=== PATIENT | male | born 1955 | race Caucasian/White ===

== ENCOUNTER → 2018-10-05 11:28 | Outpatient (CLI) | payer MEDICARE, BC, SELFPAY ==
--- NOTE | 2018-10-05 11:35 | XR_ITS ---
XR foot wt bearing LT 3V HISTORY: Foot pain ITS.REASON: pain ORDERING PHYSICIAN: Frannie Ying DPM PATIENT AGE: 63 years COMPARISON: None FINDINGS: No fracture or dislocation. No lytic or blastic change. There is normal mineralization.. The joint spaces are well-preserved. No significant degenerative/arthritic changes. No erosive changes evident. There is a small calcaneal spur at 9 mm. Mild hypertrophic changes are present dorsally at the tarsometatarsal junction. A small cortical cystic areas present within the distal articulating surface of the proximal phalanx of the second toe IMPRESSION: Mild degenerative changes, no acute finding
--- NOTE | 2018-10-05 11:35 | XR_ITS ---
XR foot wt bearing RT 3V HISTORY: ITS.REASON: pain ORDERING PHYSICIAN: Frannie Ying DPM PATIENT AGE: 63 years COMPARISON: None FINDINGS: No fracture or dislocation. No lytic or blastic change. There is normal mineralization.. The joint spaces are well-preserved. No significant degenerative/arthritic changes. No erosive changes evident. IMPRESSION: Negative, no acute finding
== END ==
PROVIDERS: PCP Nurse Practitioner Family; Visit Provider Podiatrist
DX: M77.41 Metatarsalgia, right foot (principal); M77.42 Metatarsalgia, left foot
CPT/HCPCS: 73630

== ENCOUNTER → 2018-11-27 11:42 | Outpatient (CLI) | payer MEDICARE, BC, SELFPAY ==
--- NOTE | 2018-11-27 11:47 | XR_ITS ---
XR chest 2V HISTORY: ITS.REASON: SHORTNESS OF BREATH ORDERING PHYSICIAN: Reina Edwards PATIENT AGE: 63 years COMPARISON: None FINDINGS: The cardiomediastinal silhouette and pulmonary vascularity are within normal limits. The lungs are clear without infiltrates, suspicious nodules, or pleural effusions. No acute bony abnormalities. IMPRESSION: Negative chest, no acute finding
== END ==
PROVIDERS: PCP Nurse Practitioner Family; Visit Provider Nurse Practitioner Family
DX: R06.02 Shortness of breath (principal)
CPT/HCPCS: 71046

== ENCOUNTER → 2018-11-30 09:59 | Outpatient (POV) | payer MEDICARE, BC, SELFPAY | PROVIDERS: Visit Provider Specialist | DX: R20.2 Paresthesia of skin (principal); M79.672 Pain in left foot; M79.671 Pain in right foot | CPT/HCPCS: 95886; 95909 ==

== ENCOUNTER → 2018-12-09 09:42 | Outpatient (CLI) | payer MEDICARE, BC, SELFPAY ==
[2018-12-09 16:25] VITALS: PULSE 78; PULSE 80
== END ==
PROVIDERS: PCP Nurse Practitioner Family; Visit Provider Nurse Practitioner Family
DX: R06.02 Shortness of breath (principal)
CPT/HCPCS: 94060; 94640

== ENCOUNTER → 2018-12-29 14:58 | Outpatient (CLI) | payer MEDICARE, BC, SELFPAY ==
--- NOTE | 2018-12-29 15:01 | CT_ITS ---
CT chest wo con HISTORY: Shortness of air ITS.REASON: SOB ORDERING PHYSICIAN: Reina Edwards APRN PATIENT AGE: 63 years COMPARISON: None Technique: Axial images obtained. Sagittal, and coronal reformatted images are also generated and reviewed. All CT scans at the facility use one or more dose reduction, viz: automated exposure control, ma/kV adjustment per patient size (including targeted exams where dose is matched to indication, i.e. head), or iterative reconstruction technique. FINDINGS: Coronary artery stent is present. Normal heart size record artery calcifications are also noted. There are scattered small pulmonary nodules 3 mm or less. A 4 mm noncalcified nodule is present along the left major fissure. No lobar consolidation or collapse. There is a 4 mm nodule in the left lower lobe in subpleural region which is calcified. No effusions or infiltrates. No acute bony findings. Upper abdominal images show no acute finding. There is some gas in the distal esophagus which could be related to reflux. IMPRESSION: 1. No acute finding. 2. Scattered noncalcified small pulmonary nodules 3 mm or less. Suggest 1 year follow-up.
== END ==
PROVIDERS: PCP Nurse Practitioner Family; Visit Provider Nurse Practitioner Family
DX: R06.02 Shortness of breath (principal)
CPT/HCPCS: 71250

== ENCOUNTER → 2019-06-03 13:47 | Outpatient (CLI) | payer MEDICARE, BC, SELFPAY ==
[2019-06-03 15:09] LABS: Anion Gap 13.3 mEq/L (5-15); Blood Urea Nitrogen 18 mg/dL (7-18); Calcium 9.1 mg/dL (8.5-10.1); Carbon Dioxide 28 mmol/L (21.0-32.0); Chloride 104 mmol/L (98-107); Creatinine,Serum 1.06 mg/dL (0.70-1.30); Estimated Glomerular Filt Rate 70 ml/min (>60); GFR (African American) 85 ML/MIN (>60); Glucose 88 mg/dL (74-106); Potassium 4.3 mmoL/L (3.5-5.1); Sodium 141 mmol/L (136-145)
== END ==
PROVIDERS: Visit Provider Clinical Nurse Specialist Adult Health
DX: R06.09 Other forms of dyspnea (principal)
CPT/HCPCS: 36415; 80048

== ENCOUNTER → 2019-12-07 09:25 | Outpatient (CLI) | payer MEDICARE, BC, SELFPAY ==
[2019-12-07 11:19] LABS: Chloride 105 mmol/L (98-107); Potassium 4.2 mmoL/L (3.5-5.1); Sodium 139 mmol/L (136-145)
[2019-12-07 11:22] LABS: Anion Gap 11.2 mEq/L (5-15); Blood Urea Nitrogen 12 mg/dl (9-20); Calcium 8.9 mg/dl (8.4-10.2); Carbon Dioxide 27 mmol/L (22.0-30.0); Estimated Glomerular Filt Rate 75 ml/min (>60); GFR (African American) 90 ML/MIN (>60); Glucose 103 mg/dl (74-100)
== END ==
PROVIDERS: Visit Provider Clinical Nurse Specialist Adult Health
DX: R06.09 Other forms of dyspnea (principal); Z51.81 Encounter for therapeutic drug level monitoring; Z79.899 Other long term (current) drug therapy
CPT/HCPCS: 36415; 80048

== ENCOUNTER → 2019-12-28 09:08 | Outpatient (CLI) | payer MEDICARE, BC, SELFPAY ==
[2019-12-28 10:10] LABS: Chol/HDL Ratio 2.9 (1-3.5); Cholesterol 144 mg/dl (140-200); HDL Cholesterol 50 mg/dl (40-60); Triglycerides 138 mg/dl (30-150); VLDL Cholesterol 28 mg/dL (0-40)
[2019-12-28 10:21] LABS: Direct LDL Cholesterol 85.29 mg/dL (100-129)
== END ==
PROVIDERS: Visit Provider Clinical Nurse Specialist Adult Health
DX: E78.00 Pure hypercholesterolemia, unspecified (principal)
CPT/HCPCS: 36415; 80061

== ENCOUNTER 2020-02-06 11:32 | Emergency (ER) | payer MEDICARE, BC, SELFPAY ==
[2020-02-06 11:34] VITALS: BP 127/70; PULSE 65; RESP 18; TEMP 36.9; O2SAT 100; BMI 30.3
--- NOTE | 2020-02-06 12:15 | HMH.EDSKAF ---
ED Disposition Clinical Impression: Cellulitis Qualifiers: Site of cellulitis: trunk Site of cellulitis of trunk: chest wall Qualified Code(s): L03.313 - Cellulitis of chest wall Disposition: Home, Self-Care Condition on Discharge: Good Instructions: DI for Skin Abscess Additional Instructions: use meds and see pcp for follow up Prescriptions: cephALEXin [Keflex 500mg Cap] 500 mg PO TID #30 cap Transmission Status: Pending to Clinic Pharmacy [facility] Minocycline HCl [Minocycline HCl 100mg Tab*] 100 mg PO BID #20 tab Transmission Status: Pending to Clinic Pharmacy [facility] Referrals: Provider,Referral, [Primary Care Provider] - - Critical Care Critical Care Time: No Attestation: On 02/06/20, the high probability of a clinically significant, sudden or life threatening deterioration of the following system(s) required my full and direct attention, intervention and personal management. The time I documented below is in addition to time spent performing reported procedures but includes the following listed in this critical care notation. Medical Decision Making - Medical Records Medical records reviewed: Yes: I reviewed the patient's medical records. - Arash Inquiry Pt receiving controlled substance: No Vital Signs: 02/06/20 11:34 Temperature 98.5 F Temperature Source Oral Pulse Rate [Right] 65 Respiratory Rate 18 Blood Pressure [Right Arm] 127/70 Blood Pressure Mean [Right Arm] 89 02 Sat by Pulse Oximetry 100 - Lab Data Lab results reviewed: Yes: I reviewed the patient's lab results. Lab Results 02/06/20 12:17: WBC 8.0, RBC 4.52 L, Hgb 14.6, Hct 40.0 L, MCV 88.6, MCH 32.3 H, MCHC 36.4 H, RDW 13.3, Plt Count 177, MPV 9.0, Neut % (Auto) 71.3, Lymph % (Auto) 17.5, [place] % (Auto) 7.6, Eos % (Auto) 1.5, Baso % (Auto) 2.2 H, Neut # (Auto) 5.7, Lymph # (Auto) 1.4, [place] # (Auto) 0.6, Eos # (Auto) 0.1, Baso # (Auto) 0.2 02/06/20 12:17: Sodium 135 L, Potassium 3.7, Chloride 103, Carbon Dioxide 24, Anion Gap 11.7, BUN 17, Creatinine 1.00, Estimated Creat Clear 107, Estimated GFR 75, Est GFR ( Amer) 90, Glucose 111 H, Calcium 9.3, Total Bilirubin 1.2, AST 30, ALT 21, Alkaline Phosphatase 88, C-Reactive Protein 23.8 H, Total Protein 7.8, Albumin 4.7, Globulin 3.1, Albumin/Globulin Ratio 1.5 02/06/20 12:17: Lactate 0.7 Result diagrams: 02/06/20 12:17 02/06/20 12:17 Orders (Tests/Meds): ED MEDICATIONS Generic Name Dose Route Start Last Admin Trade Name Freq PRN Reason Stop Dose Admin Vancomycin HCl 2,000 mg/ 250 mls @ 125 mls/hr 02/06/20 12:30 02/06/20 12:37 Sodium Chloride IV 02/06/20 14:29 125 mls/hr ONCE ONE Administration ORDERS Category Date Time Status Blood Culture Stat Micro 02/06/20 12:17 Received Skin/Abscess/FB HPI - General Chief complaint: Skin/Abscess/Foreign Body Stated complaint: possible bug bite on rib cage Time Seen by Provider: 02/06/20 12:00 Mode of Arrival: Ambulatory Source of Information: Patient, Spouse, Medical Record Limitations: No Limitations Description of Symptoms (Recalled from ER Triage Doc. by RN): Large area noted to left sided rib cage that is a possible bite of some sort. Denies fever, body aches or chills. - History of Present Illness HPI narrative: pt with raised red area on lt lat chest over the last 2 days - no blisters complaint: rash Onset (ago): day(s) Tetanus up to date: unsure Location: chest Severity: moderate Associated symptoms: denies other symptoms Treatments prior to arrival: none - Related Data Home Medications Medication Instructions Recorded Confirmed amlodipine 10 mg tablet PO 90 Days #90 tab 10/05/18 11/10/18 aspirin 81 mg chewable tablet PO 30 Days #30 tab 10/05/18 11/10/18 atorvastatin 80 mg tablet PO 90 Days #90 tab 10/05/18 11/10/18 carvedilol 6.25 mg tablet PO TID 30 Days #90 tab 10/05/18 11/10/18 clopidogrel 75 mg tablet PO 90 Days #90 tab 10/05/18 11/10/18 hydrochlorothiazide 12.5 mg capsule
[2020-02-06 12:32] LABS: Basophils # 0.2 K/mm3 (0-0.2); Basophils % 2.2 % (0.1-2.0); Eosinophils # 0.1 K/mm3 (0.0-0.4); Eosinophils % 1.5 % (0.1-12.0); Hemoglobin 14.6 g/dL (14.1-18.0); Lymphocytes # 1.4 K/mm3 (0.7-4.5); Lymphocytes % 17.5 % (10-50); Mean Corpuscular HGB Conc 36.4 g/dL (31.8-35.4); Mean Corpuscular Hemoglobin 32.3 pg (27.0-31.2); Mean Corpuscular Volume 88.6 fl (80-94); Monocytes # 0.6 K/mm3 (0.1-1.0); Monocytes % 7.6 % (1.7-9.3); Neutrophils # 5.7 K/mm3 (1.8-7.8); Neutrophils % 71.3 % (37.0-80.0); Platelet Count 177 K/mm3 (142-424); Red Blood Count 4.52 M/mm3 (4.60-6.20); Red Cell Distribution Width 13.3 % (11.5-17.5)
[2020-02-06 12:36] LABS: Alanine Aminotransferase 21 U/L (12-78); Albumin Level 4.7 g/dl (3.5-5.0); Albumin/Globulin Ratio 1.5 (1.1-1.8); Alkaline Phosphatase 88 U/L (38-126); Anion Gap 11.7 mEq/L (5-15); Aspartate Amino Transferase 30 U/L (17-59); Bilirubin,Total 1.2 mg/dl (0.2-1.3); Blood Urea Nitrogen 17 mg/dl (9-20); Calcium 9.3 mg/dl (8.4-10.2); Carbon Dioxide 24 mmol/L (22.0-30.0); Chloride 103 mmol/L (98-107); Creatinine Clearance Estimated 107 mL/min (50-200); Estimated Glomerular Filt Rate 75 ml/min (>60); GFR (African American) 90 ML/MIN (>60); Globulin 3.1 g/dL (1.3-3.2); Glucose 111 mg/dl (74-100); Lactic Acid 0.7 mmol/L (0.7-2.1); Potassium 3.7 mmoL/L (3.5-5.1); Sodium 135 mmol/L (136-145); Total Protein,Serum 7.8 g/dl (6.3-8.2)
[2020-02-06 12:42] LABS: C-Reactive Protein 23.8 mg/L (0-4)
[2020-02-06 14:42] VITALS: BP 123/87; PULSE 85; RESP 20; TEMP 36.8; O2SAT 98
== END 2020-02-06 14:44 | disposition home or self-care (01) ==
PROVIDERS: Emergency Provider Emergency Medicine
DX: L03.313 Cellulitis of chest wall (principal); I10 Essential (primary) hypertension; E78.5 Hyperlipidemia, unspecified; I25.2 Old myocardial infarction; Z79.899 Other long term (current) drug therapy
CPT/HCPCS: 80053; 83605; 85025; 86140; 87040; 96365; 99283; J3370

== ENCOUNTER → 2020-06-23 11:13 | Outpatient (CLI) | payer MEDICARE, BC, SELFPAY ==
[2020-06-24 09:01] LABS: Covid-19 Nasal PCR Sendout UK NOT DETECTED
== END ==
PROVIDERS: PCP Nurse Practitioner Family; Visit Provider Family Medicine
DX: Z03.818 Encounter for observation for suspected exposure to other biological agents ruled out (principal)
CPT/HCPCS: U0003

== ENCOUNTER → 2020-07-04 09:41 | Outpatient (CLI) | payer MEDICARE, BC, SELFPAY ==
[2020-07-04 11:06] LABS: Chloride 103 mmol/L (98-107); Potassium 3.9 mmoL/L (3.5-5.1); Sodium 140 mmol/L (136-145)
[2020-07-04 11:09] LABS: Alanine Aminotransferase 20 U/L (12-78); Albumin Level 4.5 g/dl (3.5-5.0); Albumin/Globulin Ratio 1.8 (1.1-1.8); Alkaline Phosphatase 66 U/L (38-126); Anion Gap 13.9 mEq/L (5-15); Aspartate Amino Transferase 27 U/L (17-59); Bilirubin,Total 0.8 mg/dl (0.2-1.3); Blood Urea Nitrogen 15 mg/dl (9-20); Calcium 9.3 mg/dl (8.4-10.2); Carbon Dioxide 27 mmol/L (22.0-30.0); Chol/HDL Ratio 3.7 (1-3.5); Cholesterol 172 mg/dl (140-200); Estimated Glomerular Filt Rate 75 ml/min (>60); GFR (African American) 90 ML/MIN (>60); Globulin 2.5 g/dL (1.3-3.2); Glucose 105 mg/dl (74-100); HDL Cholesterol 46 mg/dl (40-60); Triglycerides 184 mg/dl (30-150); VLDL Cholesterol 37 mg/dL (0-40)
[2020-07-04 11:21] LABS: Direct LDL Cholesterol 95.49 mg/dL (100-129)
[2020-07-04 11:24] LABS: Triiodothryronine (T3) Uptake 36 % (23.5-40.5)
[2020-07-04 11:25] LABS: Free Thyroxine Index 2.4 ug/dL (5.93-13.13); T4 (Thyroxine) 6.7 ug/dl (5.53-11.0)
[2020-07-04 11:38] LABS: Thyroid Stimulating Hormone 2.75 uIU/mL (0.465-4.68)
== END ==
PROVIDERS: Visit Provider Clinical Nurse Specialist Adult Health
DX: E07.9 Disorder of thyroid, unspecified (principal); E78.5 Hyperlipidemia, unspecified
CPT/HCPCS: 36415; 80053; 80061; 84436; 84443; 84479

== ENCOUNTER → 2021-06-12 12:53 | Outpatient (CLI) | payer MEDICARE, BC, SELFPAY ==
--- NOTE | 2021-06-12 12:58 | US_ITS ---
PROCEDURE: US THYROID CLINICAL INDICATION: THYROMEGALY COMPARISON: No exams were available for comparison FINDINGS: Right lobe: 4.5 x 1.5 x 1.9 cm. 6 x 4 mm hypoechoic nodule with increased echogenicity centrally in the upper pole. 5 mm hypoechoic nodule mid pole. 3 mm hypoechoic nodule lower pole. Ill-defined 8 x 4 mm hypoechoic area lower pole posteriorly. Left lobe: 3.6 x 1.5 x 1.5 cm. No discrete nodule apparent. Isthmus: Unremarkable Additional findings: IMPRESSION: Small hypoechoic nodules on the right well-circumscribed without calcifications wider than tall. TR level 3. Recommend 12 month follow-up. Dictated by: Eliezer Guevara MD 06/12/2021 18:10 Eliezer Guevara MD in [place] 06/12/2021 18:10
== END ==
PROVIDERS: PCP Nurse Practitioner Family; Visit Provider Nurse Practitioner Family
DX: E01.0 Iodine-deficiency related diffuse (endemic) goiter (principal)
CPT/HCPCS: 76536

== ENCOUNTER → 2022-09-09 11:19 | Outpatient (CLI) | payer MEDICARE, BC, SELFPAY ==
--- NOTE | 2022-09-09 11:22 | US_ITS ---
FINAL REPORT CLINICAL HISTORY: THYROID NODULE FINDINGS: THYROID ULTRASOUND Sonographic images of the thyroid was obtained. The right lobe of the thyroid measures 4.7 x 1.6 x 1.5 cm. The left lobe of the thyroid measures 4.8 x 1.6 x 1.4 cm. The isthmus measures 4 mm. There are numerous colloid cysts noted with the largest measuring up to 6 mm. No suspicious, solid nodule is identified. IMPRESSION: Benign colloid cysts, TI-RADS 1. No additional follow-up is recommended. Reviewed, Interpreted and Dictated by Kalli Champion MD Transcribed by Aida Gallardo Authenticated and . [facility]
== END ==
PROVIDERS: PCP Nurse Practitioner Family; Visit Provider Nurse Practitioner Family
DX: E04.1 Nontoxic single thyroid nodule (principal)
CPT/HCPCS: 76536

== ENCOUNTER 2024-01-05 14:13 | Outpatient (CLI) | payer MEDICARE, BC, SELFPAY ==
--- NOTE | 2024-01-05 14:17 | US_ITS ---
FINAL REPORT CLINICAL HISTORY: THYROMEGALY,THYROID NODULE COMPARISON: 09/09/2022 FINDINGS: THYROID ULTRASOUND: The right lobe of the thyroid gland measures 4.6 x 1.5 x 1.9 cm in size. The left lobe of the thyroid measures 4.2 x 1.5 x 1.6 cm in size. The isthmus measures 3.3 mm in thickness. There are multiple subcentimeter cysts present, more numerous on the right than the left. The largest cystic nodule is in the right lobe of the thyroid measuring up to 6 mm. This is comparable to the prior exam of 2022. These nodules all are classified as TI-RADS category 1 nodules. IMPRESSION: Multiple small subcentimeter cystic nodules are present, all TI-RADS category 1, stable in size since the prior MR of 2022. According to TI-RADS criteria, no follow-up is necessary at this time. Reviewed, Interpreted and Dictated by Kalli Champion MD Transcribed by Zelda Rees Authenticated and [facility]
--- NOTE | 2024-01-05 14:42 | CA_ITS ---
FINAL REPORT CLINICAL HISTORY: HTN, HLD, CAD, SOB COMPARISON: None FINDINGS: RIGHT CAROTID: CCA PSV -74 cm/sec ICA PSV -71 cm/sec ICA/CCA PSV ratio -0.97. Comments: Mild plaque disease is noted. LEFTCAROTID: CCA PSV -115. cm/sec ICA PSV -107. cm/sec ICA/CCA PSV ratio -1.34. Comments: Mild plaque disease is noted. Antegrade flow is seen within the vertebral arteries. IMPRESSION: Carotid stenosis classified less than 50% Reviewed, Interpreted and Dictated by Kalli Champion MD Transcribed by Patricia Bolanos Authenticated and [facility]
== END 2024-01-05 23:59 | disposition home or self-care (01) ==
LOC: RAD 14:13
PROVIDERS: PCP Nurse Practitioner; Visit Provider Nurse Practitioner
DX: E01.0 Iodine-deficiency related diffuse (endemic) goiter; R42 Dizziness and giddiness
CPT/HCPCS: 76536; 93880

== ENCOUNTER 2025-01-24 11:05 | Emergency (ER) | payer MEDICARE, BC, SELFPAY ==
[2025-01-24 11:16] VITALS: BP 147/69; PULSE 58; RESP 13; TEMP 36.6; O2SAT 97; BMI 31.1
--- NOTE | 2025-01-24 11:26 | XR_ITS ---
FINAL REPORT CLINICAL HISTORY: right chest pain COMPARISON: None FINDINGS: The heart size is normal. The mediastinum is normal. There is no focal infiltrate or edema. There are no pleural effusions. There is no pneumothorax. There is no osseous abnormality. IMPRESSION: No acute cardiopulmonary process Reviewed, Interpreted and Dictated by All Ovalle MD Transcribed by Zelda Rees Authenticated and [facility]
--- NOTE | 2025-01-24 11:29 | HMH.EDGENADL ---
Discharge Plan Disposition Patient Disposition: Home, Self-Care Condition: Good Prescriptions Prescriptions: No Action carvedilol 6.25 mg tablet PO TID 30 Days Qty: 90 amlodipine 10 mg tablet PO 90 Days Qty: 90 clopidogrel 75 mg tablet PO 90 Days Qty: 90 hydrochlorothiazide 25 mg tablet 25 mg PO losartan-hydrochlorothiazide 100-12.5 mg tablet 1 tab PO rosuvastatin 40 mg tablet 40 mg PO DAILY 90 Days Qty: 90 1RF aspirin [Enteric Coated Aspirin] 81 mg tablet,delayed release (DR/EC) 81 mg PO DAILY 90 Days Qty: 90 1RF diclofenac sodium [Voltaren Arthritis Pain] 1 % gel 4 g topical QID PRN (Reason: pain) 30 Days Qty: 100 2RF Rx Instructions: apply to heel; ankle, foot; for foot includes sole/toes/top of foot Referrals Follow up/Referrals: Maria Victoria Sosa APRN [Primary Care Provider] - See instructions Activity Restrictions/Add. Instructions Additional Instructions/Restrictions: Take Tylenol and ibuprofen every 6 hours over the next 3 to 4 days for pain control. You can also apply heat or ice to the area for additional symptom relief. 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 It is also advised that you monitor your heart rate while being active, especially if you become tired or lightheaded. Please return to ED if your symptoms worsen, change in location, change in severity, new symptoms develop or if you become concerned for your health. Clinical Impressions Clinical Impression: Muscle strain Instructions Patient Instructions: DI for Muscle Strain Print Language Print Language: Georgian Discharge ED Provider: Farzana Solis General Adult HPI General Chief complaint: Extremity Problem,Nontraumatic Stated complaint: Pain in left shoulder blade no accident Time Seen by Provider: 01/24/25 11:15 Mode of Arrival: Ambulatory Source of Information: Patient Description of Symptoms (Recalled from ER Triage Doc. by RN): pt states while putting on his shirt this AM he developed a sharp pain in his R posterior shoulder. pt states after that he was unable to lift a gas can. His pain improves with immobilization of the shoulder. pt reports his pain is 6/10 and sharp. pt denies CP, abd pain or radiating pain. pt states he is occasionally SOA, however, this is his baseline. History of Present Illness HPI narrative: David Belle is a 69 y/o male presenting with back pain. Patient reports acute onset right back pain at the base of his scapula. Patient has history of NM and is concerned that his pain is cardiac related due to a friend of his mentioning back pain that led to his heart attack. Patient notes certain movements with his right upper extremity cause recurrence of the pain. He describes it as sharp and localized. The pain does not radiate to his chest. Patient does not take chronic pain medications. Patient does take multiple medications for hypertension as well as blood thinners. Patient did not take medications for pain prior to arrival this morning. Patient denies shortness of breath, headache, chest pain, neck pain, nausea or vomiting. Related Data Home Medications ?Medication ?Instructions ?Recorded ?Confirmed amlodipine 10 mg tablet PO 90 days #90 tabs 10/05/18 03/06/20 carvedilol 6.25 mg tablet PO TID 30 days #90 tabs 10/05/18 03/06/20 clopidogrel 75 mg tablet PO 90 days #90 tabs 10/05/18 03/06/20 hydrochlorothiazide 25 mg tablet 25 mg PO 02/07/20 03/06/20 losartan 100 1 tab PO 02/07/20 03/06/20 mg-hydrochlorothiazide 12.5 mg tablet Previous Rx's ?Medication ?Instructions ?Recorded aspirin 81 mg tablet,delayed 81 mg PO DAILY 90 days #90 tabs 06/23/23 release (Enteric Coated Aspirin) rosuvastatin 40 mg tablet 40 mg PO DAILY 90 days #90 tabs 06/23/23 diclofenac sodium 1 % topical gel 4 g topical QID PRN pain 30 days 01/24/25 (Voltaren Arthritis Pain) #100 grams Allergies Allergy/AdvReac Type Severity Reaction Status Date / Time No Known Allergies Allergy Verified 01/24/25 11:24 [facility] Disclaimer: The information contained in this section may have been updated after the patient was seen, as this information can be updated by other users. Social History Smoking Status: Never smoker alcohol intake: never current occupational status: retired Travel in the last 8 weeks?: None Have you lived/traveled outside [place] in past 30 days?: No Contact w/someone who lives/traveled outside US past 30 days?: No Exposure to someone with infectious disease in past 14 days?: No Do you have a fever (greater than 100.4 F or 38 C)?: No Have you tested positive for COVID-19?: No Exposed to someone with COVID-19 in past 14 days?: No Do you have a sore throat?: No Do you have a cough?: No Do you have any weakness?: No Do you have any diarrhea?: No Are you experiencing any unusual bleeding?: No Do you have any muscle aches/pain?: Yes Do you have any abdominal pain?: No Are you experiencing loss of taste or smell?: No Other Medical History Have you received the Flu Vaccine for this season: No Have you received the Pneumonia Vaccine: No ROS Obtained: Yes All systems reviewed & no additional complaints except as documented Physical Exam General General appearance: alert and in no apparent distress Respiratory Respiratory exam: Present normal lung sounds bilaterally; Absent respiratory distress Cardiovascular Cardiovascular exam: Present regular rate and normal rhythm; Absent JVD Abdominal Exam Abdominal exam: Present soft; Absent distention, tenderness or guarding Extremities Exam Extremities exam: Present normal inspection, full ROM and normal capillary refill; Absent calf tenderness Back Exam Back exam: Present normal inspection and tenderness (Point tenderness at base of right scapula. No tenderness with ROM of right shoulder. Front raise of RUE causes recurrence of pain.) Neurological Exam Neurological exam: Present alert and oriented X3 Medical Decision Making Medical Records Medical records reviewed: Yes I reviewed the patient's medical records. Screening: Per USPSTF and CDC recommendations, given the prevalence of disease in our region, it is our hospital?s policy to screen for HIV and viral Hepatitis for all patients aged 18 and over and those with ongoing risk factors. Arash Inquiry Pt receiving controlled substance: No Vital Signs: 01/24/25 11:16 01/24/25 11:31 01/24/25 12:15 Temperature 97.8 F Temperature Source Oral Pulse Rate 50 L Pulse Rate [Left] 58 L Respiratory Rate 13 18 15 Blood Pressure 134/69 134/69 Blood Pressure [Right Arm] 147/69 H Blood Pressure Mean 90 Blood Pressure Mean [Right Arm] 95 Blood Pressure Source [Right Arm] Automatic Cuff Blood Pressure Position [Right Arm] Sitting 02 Sat by Pulse Oximetry 97 98 Oxygen Delivery Method Room Air 01/24/25 13:21 01/24/25 13:24 Temperature 97.9 F Temperature Source Pulse Rate 57 L Pulse Rate [Left] Respiratory Rate 13 16 Blood Pressure 127/77 127/77 Blood Pressure [Right Arm] Blood Pressure Mean 95 Blood Pressure Mean [Right Arm] Blood Pressure Source [Right Arm] Blood Pressure Position [Right Arm] 02 Sat by Pulse Oximetry Oxygen Delivery Method Lab Data Lab results reviewed: Yes I reviewed the patient's lab results. Lab Results 01/24/25 11:45: WBC 5.7, RBC 4.88, Hgb 14.7, Hct 42.3, MCV 86.7, MCH 30.1, MCHC 34.8, RDW 12.1, Plt Count 176, MPV 11.0 H, Neut % (Auto) 54.6, Lymph % (Auto) 34.0, [place] % (Auto) 7.1, Eos % (Auto) 3.4, Baso % (Auto) 0.5, Neut # (Auto) 3.1, Lymph # (Auto) 1.9, [place] # (Auto) 0.4, Eos # (Auto) 0.2, Baso # (Auto) 0.0, Sodium 138, Potassium 4.0, Chloride 105, Carbon Dioxide 26, Anion Gap 11.0, BUN 16, Creatinine 0.90, Estimated Creat Clear 100, Estimated GFR 83, Est GFR ( Amer) 101, Glucose 103 H, Calcium 9.3, Troponin I < 0.01, HCV Ab STEFANO w/Rflx PCR Qn Negative, HIV Ag/Ab Combo Qual Negative 01/24/25 11:45 01/24/25 11:45 Orders (Tests/Meds): ED MEDICATIONS Discontinued Medications Generic Name Dose Route Start Last Admin Trade Name Megan PRN Reason Stop Dose Admin Acetaminophen 1,000 mg 01/24/25 11:29 01/24/25 11:38 Acetaminophen 500mg Tab PO 01/24/25 11:30 1,000 mg ONCE ONE Administration Methocarbamol 750 mg 01/24/25 11:29 01/24/25 11:38 Methocarbamol 500mg Tablet PO 01/24/25 11:30 750 mg ONCE ONE Administration ORDERS Category Date Time Status CXR --portable [XR chest portable] Stat Exams 01/24/25 11:26 Completed BMP [Basic Metabolic Panel] Stat Lab 01/24/25 11:45 Completed CBC w/Auto Diff [Complete Blood Count Auto Diff] Stat Lab 01/24/25 11:45 Completed HIV Combo Stat Lab 01/24/25 11:45 Completed Hepatitis C Ab Qual. W/ RFX Stat Lab 01/24/25 11:45 Completed Trop I [Troponin I] Stat Lab 01/24/25 11:45 Completed Troponin I Q3H Lab 01/24/25 17:30 Ordered Medical Decision Narrative: In summary, this is a 69-year-old male presenting with right upper back pain. Differential diagnosis includes but is not limited to, muscle strain, rotator cuff tear, pneumonia, PE, aortic pathology, among others. Patient's story and exam more consistent with a muscular strain based on reproducible pain, localized region, stable vital signs and no other systemic symptoms. Patient will be evaluated with CBC, BMP, troponin, and CXR. EKG demonstrates sinus bradycardia with no QTc prolongation, no significant ST elevation/depression or evidence of acute ischemia. Patient's labs negative for leukocytosis, anemia, thrombocytopenia. BMP nonactionable. Troponin <0.01. CXR reviewed by me and negative for consolidation, rib fracture, pneumothorax. Patient has remained stable while in the emergency department. Patient given the findings of his evaluation and advised that his symptoms are likely related to a muscular strain. Patient's heart rate is on the lower side and patient does take beta-blockers. He was advised to contact his tariff publishing agent and purchase a pulse oximeter for monitoring of his heart rate. All questions answered. Patient given return precautions and follow-up recommendations. Patient discharged in stable condition. Farzana Solis MD Critical Care Critical Care Time Critical Care Time: No
[2025-01-24 11:31] VITALS: BP 134/69; PULSE 50; RESP 18; O2SAT 98
--- NOTE | 2025-01-24 11:33 | ECG_ITS ---
APPROVED REPORT Exam: Resting ECG HR:49 bpm ECG Measurements Heart Rate 49 AXES WV 172 P 78 QRSd 94 QRS 27 QT 426 T -10 QTc 396 Conclusion SINUS BRADYCARDIA PROBABLE INFERIOR MYOCARDIAL INFARCTION , OF INDETERMINATE AGE [35 ms Q WAVE IN II/aVF] ABNORMAL ECG UNCONFIRMED REPORT Electronically signed by : Farzana Solis, 01/24/2025 15:57:23
[2025-01-24] MEDS: METHOCARBAMOL 500MG TABLET 750 MG PO (11:38)
[2025-01-24] MEDS: ACETAMINOPHEN 500MG TAB 1000 MG PO (11:38)
[2025-01-24 12:03] LABS: Blood Urea Nitrogen 16 mg/dl (9-20); Calcium 9.3 mg/dl (8.4-10.2); Carbon Dioxide 26 mmol/L (22.0-30.0); Chloride 105 mmol/L (98-107); Creatinine Clearance Estimated 100 mL/min (50-200); Estimated Glomerular Filt Rate 83 ml/min (>60); GFR (African American) 101 ML/MIN (>60); Glucose 103 mg/dl (74-100); Sodium 138 mmol/L (136-145)
[2025-01-24 12:04] LABS: Basophils % 0.5 % (0.1-2.0); Eosinophils # 0.2 Kmm3 (0.0-0.4); Eosinophils % 3.4 % (0.1-12.0); Hematocrit 42.3 % (42.0-52.0); Hemoglobin 14.7 g/dL (14.1-18.0); Immature Granulocytes # 0.02 10^3uL; Immature Granulocytes % 0.4 %; Lymphocytes # 1.9 K/mm3 (0.7-4.5); Mean Corpuscular HGB Conc 34.8 g/dL (31.8-35.4); Mean Corpuscular Hemoglobin 30.1 pg (27.0-31.2); Mean Corpuscular Volume 86.7 fl (80-94); Monocytes # 0.4 K/mm3 (0.1-1.0); Monocytes % 7.1 % (1.7-9.3); Neutrophils # 3.1 K/mm3 (1.8-7.8); Neutrophils % 54.6 % (37.0-80.0); Nucleated Red Blood Cells # 0 10^3/uL; Nucleated Red Blood Cells % 0 %; Platelet Count 176 K/mm3 (142-424); Red Blood Count 4.88 M/mm3 (4.60-6.20); Red Cell Distribution Width 12.1 % (11.5-17.5); Red Cell Distribution Width-SD 38.6 fL; White Blood Count 5.7 K/mm3 (4.8-10.8)
[2025-01-24 12:15] VITALS: BP 134/69; RESP 15
[2025-01-24 12:18] LABS: Troponin I < 0.01 ng/ml (0.00-0.034)
[2025-01-24 12:57] LABS: HIV Combo NEGATIVE (Negative)
[2025-01-24 13:05] LABS: Hepatitis C Ab Qual. W/ RFX NEGATIVE (Negative)
[2025-01-24 13:21] VITALS: BP 127/77; RESP 13
[2025-01-24 13:24] VITALS: BP 127/77; PULSE 57; RESP 16; TEMP 36.6; O2SAT 99
== END 2025-01-24 13:26 | disposition home or self-care (01) ==
PROVIDERS: Emergency Provider Student in an Organized Health Care Education/Training Program; PCP Nurse Practitioner
DX: S46.811A Strain of other muscles, fascia and tendons at shoulder and upper arm level, right arm, initial encounter (principal); M25.511 Pain in right shoulder; R00.1 Bradycardia, unspecified; I10 Essential (primary) hypertension; X50.1XXA Overexertion from prolonged static or awkward postures, initial encounter; Z79.01 Long term (current) use of anticoagulants; Z86.79 Personal history of other diseases of the circulatory system; Z11.59 Encounter for screening for other viral diseases; Z11.4 Encounter for screening for human immunodeficiency virus [HIV]
CPT/HCPCS: 71045; 80048; 84484; 85025; 86803; 87389; 93005; 99284